=== PATIENT | male | born 1975 | race Caucasian/White ===

== ENCOUNTER 2016-09-10 17:08 | Emergency (ER) | payer MEDICAID, OTHER ==
[~2016-09-10] VITALS: Ht 182.9 cm; Wt 77.8 kg
[2016-09-10] MEDS ORDERED: KETOROLAC 30 MG/1 ML ONE (17:56)
[2016-09-10] MEDS ORDERED: KETOROLAC 30 MG/1 ML IM ONE (18:00)
[2016-09-10] MEDS ORDERED: PLEASE ENTER ALLERGIES MC SCH ×2 (18:00)
[2016-09-10 19:31] VITALS: BP 119/74
== END 2016-09-10 19:33 | disposition home or self-care (01) ==
LOC: ED 17:53
DX: S39.011A Strain of muscle, fascia and tendon of abdomen, initial encounter (principal); K43.9 Ventral hernia without obstruction or gangrene; X58.XXXA Exposure to other specified factors, initial encounter; Y93.89 Activity, other specified; Y92.89 Other specified places as the place of occurrence of the external cause; Y99.8 Other external cause status
CPT/HCPCS: 76705; 81001; 96372; 99285; J1885